=== PATIENT | male | born 1980 | race African-American/Black ===

== ENCOUNTER 2023-01-08 09:47 | Emergency (ER) | payer SELFPAY ==
[~2023-01-08] VITALS: Ht 177.8 cm; Wt 113.6 kg
[2023-01-08] MEDS ORDERED: AML5T PO (11:09)
[2023-01-08 11:24] VITALS: BP 140/82
== END 2023-01-08 11:26 | disposition home or self-care (01) ==
LOC: ER 09:47
DX: I10 Essential (primary) hypertension (principal); R51.9 Headache, unspecified; F12.10 Cannabis abuse, uncomplicated; Z87.442 Personal history of urinary calculi; Z76.0 Encounter for issue of repeat prescription; Z87.891 Personal history of nicotine dependence

== ENCOUNTER 2023-01-24 13:05 | Emergency (ER) | payer MEDICAID ==
[~2023-01-24] VITALS: Ht 175.3 cm; Wt 116.0 kg
[~2023-01-24 13:05] MED LIST: AML5T PO
[2023-01-24] MEDS ORDERED: AMLO-496 PO (16:08)
[2023-01-24] MEDS ORDERED: amLODIPine BESYLATE 5 MG TAB PO ONE (16:15)
[2023-01-24 16:45] VITALS: BP 144/94
== END 2023-01-24 16:49 | disposition home or self-care (01) ==
LOC: ER 13:05
DX: I10 Essential (primary) hypertension (principal); F12.90 Cannabis use, unspecified, uncomplicated; Z76.0 Encounter for issue of repeat prescription; Z87.442 Personal history of urinary calculi; Z90.49 Acquired absence of other specified parts of digestive tract

== ENCOUNTER 2023-05-05 08:21 | Emergency (ER) | payer MEDICAID ==
[~2023-05-05] VITALS: Ht 177.8 cm; Wt 113.2 kg
[~2023-05-05 08:21] MED LIST changes: +AMLO1TAB23 PO
[2023-05-05 09:38] VITALS: BP 147/85
[2023-05-05] MEDS ORDERED: AMOX875T4 PO (09:42)
[2023-05-05] MEDS ORDERED: AMLO1TAB23 PO (09:42)
[2023-05-05] MEDS ORDERED: PRED20TA2 PO (09:42)
== END 2023-05-05 09:47 | disposition home or self-care (01) ==
LOC: ER 08:21
DX: J01.90 Acute sinusitis, unspecified (principal); I10 Essential (primary) hypertension; F15.90 Other stimulant use, unspecified, uncomplicated; Z87.442 Personal history of urinary calculi; Z76.0 Encounter for issue of repeat prescription; Z90.49 Acquired absence of other specified parts of digestive tract; Z79.899 Other long term (current) drug therapy

== ENCOUNTER 2024-12-30 23:18 | Emergency (ER) | payer MEDICAID, OTHER ==
[~2024-12-30] VITALS: Ht 177.8 cm; Wt 114.5 kg
[~2024-12-30 23:18] MED LIST changes: -AML5T PO; +AMOX875T4 PO; +AUG875T PO; +IBUP1TAB5 PO; +PRED20TA2 PO; +SODI1KIT2
--- NOTE | 2024-12-30 23:32 | ED.PDOC ---
History of Present Illness HPI Comments 44-year-old male came to ER due to dizziness. Patient has history of hypertension in he has been off his medications for awhile (Norvasc 10mg). States he has been feeling dizzy and anxious recently because his blood pressure is high. Patient also complaining of right hand pain and swelling due to recent trauma to the hand. Blood pressure upon arrival was 157/93 mmHg Chief Complaint: Dizziness Time Seen by MD: 23:32 Primary Care Provider: NONE Reviewed Notes: Nurses Notes Allergies: Coded Allergies: NO KNOWN ALLERGIES (Unverified , 10/31/11) Home Meds Active Scripts Amlodipine Besylate (Amlodipine Besylate) 10 Mg Tab, 10 MG PO DAILY for 30 Days, #30 TAB Prov:KATIE FRANCO 08/03/24 Amlodipine Besylate (Amlodipine Besylate) 10 Mg Tab, 10 MG PO DAILY for 15 Days, #15 TAB Prov:KATIE FRANCO 08/03/24 Ibuprofen Micronized (Ibuprofen) 600 Mg Tab, 600 MG PO TID for 10 Days, #30 TAB 0 Refills Prov:MARIE HAWK NP 06/18/24 Sodium Chloride-Sodium Bicarbo (Neti Pot Kit Sinus Wash/C 2300-700 mg) 1 Kit Kit, 1 KIT NA UD for 30 Days, #1 KIT 0 Refills Prov:MARIE HAWK NP 06/18/24 Amoxicillin & Pot Clavulanate (AUGMENTIN TABLET) 875 Mg Tb, 875 MG PO BID for 5 Days, #10 TAB 0 Refills Prov:MARIE HAWK NP 06/18/24 Amlodipine Besylate (Amlodipine Besylate) 10 Mg Tab, 1 TAB PO DAILY for 30 Days, #30 TAB 0 Refills Prov:MARIE HAWK NP 06/18/24 Prednisone (Prednisone) 20 Mg Tab, 60 MG PO DAILY, #15 MG Prov:HAILE PEREZ 05/05/23 Amoxicillin & Pot Clavulanate (Amoxicillin/Potassium Cla) 875 Mg Tab, 1 TAB PO BID, #20 TAB Prov:HAILE PEREZ 05/05/23 Amlodipine Besylate (Amlodipine Besylate) 10 Mg Tab, 10 MG PO DAILY, #30 TAB Prov:HAILE PEREZ 05/05/23 Information Source: Patient Mode of Arrival: Ambulatory Severity: Moderate Timing: Days Duration: Intermittent Prehospital treatment: None Past Medical History PAST MEDICAL HISTORY: HTN, Kidney Stones Surgical History: Appendectomy Family History Family History: Reviewed,noncontributory to illness Social History Smoker: Quit Less Than 1 Year, Cigar Alcohol: Denies ETOH Use Drugs: Marijuana Lives In: Home Constitutional: denies: chills, diaphoresis, fatigue, fever, malaise, sweats, weakness, others EENTM: denies: blurred vision, double vision, ear bleeding, ear discharge, ear drainage, ear pain, ear ringing, eye pain, eye redness, hearing loss, mouth pain, mouth swelling, nasal discharge, nose bleeding, nose congestion, nose pain, photophobia, tearing, throat pain, throat swelling, voice changes, others Respiratory: denies: cough, hemoptysis, orthopnea, SOB at rest, shortness of breath, SOB with excertion, stridor, wheezing, others Cardiovascular: denies: chest pain, dizzy spells, diaphoresis, Dyspnea on exertion, edema, irregular heart beat, left arm pain, lightheadedness, palpitations, PND, syncope, others Gastrointestinal: denies: abdomen distended, abdominal pain, blood streaked bowels, constipated, diarrhea, dysphagia, difficulty swallowing, hematemesis, melena, nausea, poor appetite, poor fluid intake, rectal bleeding, rectal pain, vomiting, others Genitourinary: denies: burning, dysuria, flank pain, frequency, hematuria, inco ntinence, penile discharge, penile sore, pain, testicle pain, testicle swelling, urgency, others Neurological: reports: dizziness; denies: fainting, headache, left sided numbness, left sided weakness, numbness, paresthesia, pre-existing deficit, right sided numbness, right sided weakness, seizure, speech problems, tingling, tremors, weakness, others Musculoskeletal: reports: others (Right hand pain and swelling); denies: back pain, gout, joint pain, joint swelling, muscle pain, muscle stiffness, neck pain Integumetry: denies: bruises, change in color, change in hair/nails, dryness, laceration, lesions, lumps, rash, wounds, others Allergic/Immunocompromised: denies: Difficulty Healing, Frequent Infections, Hives, Itching, others Hematologic/Lymphatic: denies: anemia, blood clots, easy bleeding, easy bruising, swollen glands, others Endocrine: denies: excessive hunger, excessive sweating, excessive thirst, excessive urination, flushing, intolerance to cold, intolerance to heat, unexplained weight gain, unexplained weight loss, others Psychiatric: denies: anxiety, bipolar disorder, depression, hopeless, panic disorder, schizophrenia, sleepless, suicidal, others Physical Exam General Appearance: Mild Distress, Normal HEENT: Normal ENT Inspection, Pharynx Normal, TMs Normal Neck: Full Range of Motion, Non-Tender, Normal, Normal Inspection Respiratory: Chest Non-Tender, Lungs Clear, No Accessory Muscle Use, No Respiratory Distress, Normal Breath Sounds Cardiovascular: No Edema, No JVD, No Murmur, No Gallop, Normal Peripheral Pulses, Regular Rate/Rhythm Breast Exam: Deferred Gastrointestinal: No Organomegaly, Non Tender, No Pulsatile Mass, Normal Bowel Sounds, Soft Genitalia: Deferred Pelvic: Deferred Rectal: Deferred Extremities: No calf tenderness, Normal capillary refill, Normal inspection, Normal range of motion, Non-tender, No pedal edema Musculoskeletal : Apperance: Normal Neurologic: Alert, manager of security II-XII nml as Tested, No Motor Deficits, Normal Affect, Normal Mood, No Sensory Deficits Cerebellar Function: Normal Reflexes: Normal Skin: Dry, Normal Color, Warm Lymphatic: No Adenopathy Was a procedure done? Was a procedure done?: No Differential Dx Considerations may include: Anemia, electrolyte imbalance, medication noncompliance, hypertensive urgency, fractures X-Ray, Labs, Meds, VS Vital Signs Date Time Temp Pulse Resp B/P (MAP) Pulse Ox O2 Delivery O2 Flow Rate FiO2 12/30/24 23:28 97.6 72 16 157/93 (114) [address] [address] Ph: [phone] DIAGNOSTIC IMAGING Diagnostic Imaging Report : [id number] Signed PATIENT: BOBBY REYNOLDS ACCT: [id number] UNIT: [id number] : 1980 LOC: ER ROOM / BED: / AGE / SEX: 44 / M ADM STATUS: REG ER SERVICE [id number] ORDERING PHYSICIAN: AUGUST HERRERA MD PROCEDURE(s): RHAN2 - R HAND 2 VIEW XRAY REASON: swelling ORDER NUMBER(s): [id number], ACCESSION NUMBER(s): [id number] XY R HAND 2 VIEW XRAY, INDICATION: swelling TECHNICAL DATA: Frontal, oblique and lateral views were obtained of the right hand. COMPARISON: None FINDINGS: No fracture is identified. Joint spaces are maintained. Alignment is anatomic. Soft tissues are within normal limits. IMPRESSION: No acute fracture or dislocation of the right hand. ATED BY: REINA MAST DO DICTATED DATE/TIME: 12/31/2450 SIGNED BY: REINA MAST DO SIGNED DATE/TIME: 12/31/2450 CC: The patient was given Norvasc for his elevated blood pressure and he was also prescribed Norvasc. Time of 1ST Reevaluation: 23:28 Reevaluation 1ST: Unchanged Patient Education/Counseling: Diagnosis, Treatment Family Education/Counseling: No Family Present Departure 1 Departure Time of Disposition: 01:11 Impression: Primary Impression: HTN (hypertension) Qualified Codes: I10 - Essential (primary) hypertension Additional Impression: Sprain of hand, right Qualified Codes: S63.91XA - Sprain of unspecified part of right wrist and hand, initial encounter Disposition: 01 HOME / SELF CARE / HOMELESS Condition: Stable Additional Instructions: Reassessed patient, vital signs stable. Denies any new symptoms. Patient is able to tolerate PO and ambulate/be mobile at their baseline without concern. Risks and benefits of all medications given or prescribed, if any, discussed. All lab work, imaging and diagnostic studies were reviewed by me. The patient was counseled extensively on my clinical impression, diagnosis, expected course of the disease, and plan, including their follow-up care. Will discharge patient. Patient instructed to follow up with Primary Care Physician within 24-48 hours. Strict return precautions given for further exacerbation of symptoms or for new symptoms. The patient was given the opportunity to ask questions and all questions were answered by myself and the nursing/tech staff. Patient is in agr eement with the care plan. The patient verbally expressed understanding of the discharge instructions, including the reasons to return to the Emergency Department. e-Prescriptions Amlodipine Besylate (NORVASC TABLET) 5 Mg Tb 2 TAB PO DAILY, #60 TAB 5 Refills Prov: AUGUST HERRERA MD 12/31/24 Discharged With: Spouse Critical Care Note Critical Care Time?: No Stability Stability form required: No Heart Score Heart Score: Heart Score Response (Comments) Value History N/A 0 EKG N/A 0 Age N/A 0 Risk Factors N/A 0 Troponin N/A 0 Total 0 I personally scribed for AUGUST HERRERA MD ([email or web address]) on 12/30/24 at 23:32. Electronically submitted by Melvin Rose ([email or web address]). I personally scribed for AUGUST HERRERA MD ([email or web address]) on 12/30/24 at 23:38. Electronically submitted by Melvin Rose ([email or web address]). AUGUST HERRERA MD Dec 30, 2024 23:32
--- NOTE | 2024-12-31 00:53 | DVH ---
XY R HAND 2 VIEW XRAY, INDICATION: swelling TECHNICAL DATA: Frontal, oblique and lateral views were obtained of the right hand. COMPARISON: None FINDINGS: No fracture is identified. Joint spaces are maintained. Alignment is anatomic. Soft tissues are withi n normal limits. IMPRESSION: No acute fracture or dislocation of the right hand.
[2024-12-31] MEDS ORDERED: AML5T PO (01:13)
[2024-12-31 01:18] VITALS: BP 146/91; PULSE 72; RESP 18; TEMP 97.6; O2SAT 94
[2024-12-31] MEDS: amLODIPine BESYLATE 5 MG TAB PO ONE (01:24)
== END 2024-12-31 01:45 | disposition home or self-care (01) ==
LOC: ER 23:18
DX: S63.8X1A Sprain of other part of right wrist and hand, initial encounter (principal); I10 Essential (primary) hypertension; Z90.49 Acquired absence of other specified parts of digestive tract; Z79.899 Other long term (current) drug therapy; X58.XXXA Exposure to other specified factors, initial encounter; Y93.89 Activity, other specified; Y92.89 Other specified places as the place of occurrence of the external cause; Y99.8 Other external cause status
CPT/HCPCS: 73120